=== PATIENT | male | born 1990 | race Two or more races ===

== ENCOUNTER 2022-04-03 09:45 | Emergency (ER) | payer MEDICAID ==
[~2022-04-03] VITALS: Ht 180.3 cm; Wt 100.0 kg
[2022-04-03 10:49] VITALS: BP 143/80
[2022-04-03] MEDS ORDERED: KETOROLAC TROMETH 30 MG/ML 1ML VIAL IM ONE (11:00)
[2022-04-03] MEDS ORDERED: methylPREDNISolone SOD SUCC 125 MG/2 ML VL IM ONE (11:00)
[2022-04-03] MEDS ORDERED: IBUP800T26 PO (11:42)
[2022-04-03] MEDS ORDERED: CYCL-837 PO (11:42)
== END 2022-04-03 11:43 | disposition home or self-care (01) ==
LOC: ER 09:45
DX: M54.50 Low back pain, unspecified (principal); M79.18 Myalgia, other site; X50.0XXA Overexertion from strenuous movement or load, initial encounter; Y93.89 Activity, other specified; Y92.89 Other specified places as the place of occurrence of the external cause; Y99.8 Other external cause status
CPT/HCPCS: 96372; 99284; J1885; J2930